=== PATIENT | male | born 1975 | race Caucasian/White ===

== ENCOUNTER 2017-04-01 18:28 | Emergency (ER) | payer BC ==
[2017-04-01] MEDS ORDERED: OXYCODONE-ACETAMINOPHEN 5-325 MG TABLET PO ONE (19:01)
--- NOTE | 2017-04-01 19:06 | ER Document Report ---
HPI - HPI Patient complains to provider of: r ankle injury Onset: This morning Onset/Duration: Sudden Quality of pain: Achy Pain Level: 3 Context: Patient states that he stepped off of his porch and accidentally stepped into a hole in his yard rolling his right ankle. Patient complains of continued right lateral ankle pain with swelling. Associated Symptoms: Other - Right ankle injury Exacerbated by: Standing, Movement, Walking Relieved by: Denies Similar symptoms previously: No Recently seen / treated by doctor: No - ROS ROS below otherwise negative: Yes Systems Reviewed and Negative: Yes All other systems reviewed and negative - NEURO Neurology: DENIES: Weakness - MUSCULOSKELETAL Musculoskeletal: REPORTS: Extremity pain, Swelling - DERM Skin Color: Ecchymosis Skin Problems: None Past Medical History - General Information source: Patient - Social History Smoking Status: Never Smoker Frequency of alcohol use: Occasional Drug Abuse: None Occupation: [employer] Lives with: Family Family History: Reviewed & Not Pertinent - Past Medical History Cardiac Medical History: Reports: Other - dextrocardia Musculoskeltal Medical History: Reports Other - chronic back pain Past Surgical History: Reports: Hx Appendectomy - Immunizations Hx Diphtheria, Pertussis, Tetanus Vaccination: Yes Vertical Provider Document - CONSTITUTIONAL Agree With Documented VS: Yes Exam Limitations: No Limitations General Appearance: WD/WN, No Apparent Distress - INFECTION CONTROL TRAVEL OUTSIDE OF THE [place] IN LAST 30 DAYS: No - HEENT HEENT: Atraumatic - NECK Neck: Normal Inspection - RESPIRATORY Respiratory: No Respiratory Distress - CARDIOVASCULAR Pulses: Normal: Dorsalis pedis - MUSCULOSKELETAL/EXTREMETIES Musculoskeletal/Extremeties: MAEW, Tender - Right ankle tenderness over lateral malleolar area with 2+ edema and ecchymosis, Edema, Eccymosis - NEURO Level of Consciousness: Awake, Alert, Appropriate Motor/Sensory: No Motor Deficit - DERM Integumentary: Warm, Dry Course - Diagnostic Test Radiology reviewed: Image reviewed, Reports reviewed Procedures - Immobilization Right Ankle Pre-Proc Neuro Vasc Exam: Normal Immobilizer type: Ankle stirrup Performed by: PCT Post-Proc Neuro Vasc Exam: Normal Alignment checked and good: Yes Discharge - Discharge Clinical Impression: Elevated blood pressure reading Right ankle sprain Qualifiers: Encounter type: initial encounter Involved ligament of ankle: unspecified ligament Qualified Code(s): S93.401A - Sprain of unspecified ligament of right ankle, initial encounter Condition: Stable Disposition: HOME, SELF-CARE Instructions: Ice & Elevation ([facility]), Sprained Ankle ([facility]), Use of Crutches ([facility] ), Ankle Stirrup Splint ([facility]) Additional Instructions: Return immediately for any new or worsening symptoms Followup with your primary care provider, call tomorrow to make a followup appointment Weightbearing as tolerated Follow-up with orthopedic doctor for any continued pain or problems Take your pain medications that you have at home as prescribed Your blood pressure was elevated, recheck with your primary doctor to have this reevaluated next week Forms: Elevated Blood Pressure, Return to Work Referrals: XENIA ANDERSON MD [Primary Care Provider] - Follow up as needed [facility] [Provider Group] - Follow up as needed
--- NOTE | 2017-04-01 19:46 | RADIOLOGY REPORT (SQ) ---
EXAM DESCRIPTION: ANKLE RIGHT COMPLETE COMPLETED DATE/TIME: 04/01/2017 7:17 pm REASON FOR STUDY: stepped into hole, r lat ankle pain COMPARISON: None. NUMBER OF VIEWS: Three views. TECHNIQUE: AP, lateral, and oblique radiographic images acquired of the right ankle. LIMITATIONS: None. FINDINGS: MINERALIZATION: Normal. BONES: No acute fracture or dislocation. No worrisome bone lesions. JOINTS: No effusions. SOFT TISSUES: Mild soft tissue swelling overlies the lateral malleolus. No foreign body. OTHER: No other significant finding. IMPRESSION: Mild soft tissue swelling laterally without underlying osseous injury. TECHNICAL DOCUMENTATION: JOB ID: [id number] [employer]- All Rights Reserved
[2017-04-01 20:31] VITALS: BP 139/87
== END 2017-04-01 20:26 | disposition home or self-care (01) ==
LOC: ER 18:28
DX: S99.911A Unspecified injury of right ankle, initial encounter (principal); R03.0 Elevated blood-pressure reading, without diagnosis of hypertension; W17.2XXA Fall into hole, initial encounter
CPT/HCPCS: 99283; 73610; L1902

== ENCOUNTER 2018-12-27 13:21 | Emergency (ER) | payer SELFPAY ==
[2018-12-27] MEDS ORDERED: AMOXICILLIN TR/POT CLAVULANATE 500-125 MG TAB PO ONE (14:35)
[2018-12-27] MEDS ORDERED: NAPROXEN 250 MG TABLET PO ONE (14:36)
--- NOTE | 2018-12-27 14:49 | ER Document Report ---
ED General - General Chief Complaint: Cat Bite Stated Complaint: CAT BITE/LEFT HAND Time Seen by Provider: 12/27/18 14:23 Primary Care Provider: XENIA ANDERSON MD [Primary Care Provider] - Follow up in 3-5 days Notes: Patient is a 43-year-old male that presents to the emergency department for chief complaint of Bite to the left hand. Patient states he was bit by his cat yesterday, and noticed redness and swelling shortly after and got worse today, the bite was on his left hand near the base of the thumb. This is his cats an indoor cat, and up-to-date with rabies vaccinations. The patient is right- handed. He denies any any fevers, chills, night sweats, chest pain or shortness of breath. No other systemic symptoms. He currently rates his pain as a 3 out of 10 describes it as an aching sensation worse with palpation over the hand. Past Medical History: Denies history of diabetes Past Surgical History: Appendectomy Social History: Admits to occasional alcohol use, denies tobacco or drug use. Family History: Reviewed and noncontributory for presenting illness Allergies: Reviewed, see documented allergy list. REVIEW OF SYSTEMS: Other than noted above, the 12 point review of systems was reviewed with the patient and were negative, all pertinent findings are included in the HPI. PHYSICAL EXAMINATION: Vital signs reviewed, nursing noted reviewed. GENERAL: Well-appearing, well-nourished and in no acute distress. HEAD: Atraumatic, normocephalic. EYES: Eyes appear normal, sclera anicteric, conjunctiva are normal. ENT: Moist mucous membranes. NECK: Normal range of motion, supple without lymphadenopathy LUNGS: Breath sounds clear to auscultation bilaterally and equal. No wheezes rales or rhonchi. HEART: Regular rate and rhythm without murmurs EXTREMITIES: On the dorsal aspect and radial aspect of the left hand, there are 2 puncture harrison, and surrounding erythema, with minimal lymphangitis extend proximally up the left wrist, tenderness with palpation over this area, no palpable fluctuance. Patient is able to extend and flex his fingers without much pain or difficulty. There is no erythema on the palmar aspect or over the flexor tendons of the fingers. The rest the patient's extremity exam is grossly unremarkable. There is no axillary lymphadenopathy. NEUROLOGICAL: No focal neurological deficits. Moves all extremities spontaneously Motor and sensory grossly intact on exam. PSYCH: Normal mood, normal affect. SKIN: Warm, Dry, normal turgor, no rashes or lesions noted on exposed skin TRAVEL OUTSIDE OF THE [place] IN LAST 30 DAYS: No - Related Data Allergies/Adverse Reactions: No Known Allergies Allergy (Verified 12/27/18 13:24) Past Medical History - Social History Smoking Status: Never Smoker Family History: Reviewed & Not Pertinent Patient has suicidal ideation: No Patient has homicidal ideation: No Renal/ Medical History: Denies: Hx Peritoneal Dialysis Past Surgical History: Reports: Hx Appendectomy - Immunizations Hx Diphtheria, Pertussis, Tetanus Vaccination: Yes Physical Exam - Vital signs Vitals: Temp Pulse Resp BP Pulse Ox 98.0 F 86 18 133/80 H 98 12/27/18 13:41 12/27/18 13:41 12/27/18 13:41 12/27/18 13:41 12/27/18 13:41 Course - Re-evaluation Re-evalutation: Patient seen and examined vital signs reviewed. Patient was evaluated and treated as appropriate for the patient's presenting symptoms and complaint, with consideration of any critical or life threatening conditions that may be associated with their obtained history and exam as noted above. Patient was treated with Augmentin Evaluation was most consistent with cellulitis secondary to her Right, x-rays are negative for retained objects. Patient placed on Augmentin for 10 days, advised to monitor closely, his cellulitis was marked with a marking pen, so that he can monitor to see if it is getting worse. Plan of care was discussed with the patient at this point, after careful consideration I feel that that patient can be discharged from the emergency department, the patient was educated treatments and reasons to return to the emergency department based on their presumed diagnosis as noted above, they were advised to followup with a primary care physician in 2-3 days. Patient was agreeable to plan of care. *Note is created using voice recognition software and may contain spelling, syntax or grammatical errors. Hand X-Ray 12/27/18 14:34 IMPRESSION: Diffuse soft tissue swelling. No radiopaque foreign body or soft tissue gas. No acute fracture. - Vital Signs Vital signs: Temp Pulse Resp BP Pulse Ox 97.8 F 98 16 137/96 H 100 12/27/18 16:38 12/27/18 16:38 12/27/18 16:38 12/27/18 16:38 12/27/18 16:38 Discharge - Discharge Clinical Impression: Cellulitis Qualifiers: Site of cellulitis: extremity Site of cellulitis of extremity: upper extremity Laterality: left Qualified Code(s): L03.114 - Cellulitis of left upper limb Cat bite Qualifiers: Encounter type: initial encounter Qualified Code(s): W55.01XA - Bitten by cat, initial encounter Condition: Stable Disposition: HOME, SELF-CARE Instructions: Cellulitis ([facility]) Additional Instructions: Please monitor for any worsening redness or pain, as you are taking the antibiotics. If you notice it is getting worse of the next 24-48 hours, please return to the emergency department. Prescriptions: Amox Tr/Potassium Clavulanate [Augmentin 875-125 Tablet] 1 tab PO BID 10 Days #20 tablet Referrals: XENIA ANDERSON MD [Primary Care Provider] - Follow up in 3-5 days
--- NOTE | 2018-12-27 15:09 | RADIOLOGY REPORT (SQ) ---
EXAM DESCRIPTION: HAND LEFT 3 VIEWS COMPLETED DATE/TIME: 12/27/2018 2:59 pm REASON FOR STUDY: cat bite to thumb COMPARISON: None. EXAM PARAMETERS: NUMBER OF VIEWS: Three views. TECHNIQUE: AP, lateral and oblique radiographic images acquired of the left hand. LIMITATIONS: None. FINDINGS: MINERALIZATION: Normal. BONES: No acute fracture or dislocation. No worrisome bone lesions. JOINTS: No effusions. SOFT TISSUES: Diffuse dorsal left hand soft tissue swelling. Diffuse thenar eminence soft tissue swe lling. No foreign body. OTHER: No other significant finding. IMPRESSION: Diffuse soft tissue swelling. No radiopaque foreign body or soft tissue gas. No acute fracture. TECHNICAL DOCUMENTATION: JOB ID: [id number]- All Rights Reserved Reading location - IP/workstation name: [email or web address]
[2018-12-27 16:38] VITALS: BP 137/96
== END 2018-12-27 16:38 | disposition home or self-care (01) ==
LOC: ER 13:21
DX: L03.114 Cellulitis of left upper limb (principal); S60.572A Other superficial bite of hand of left hand, initial encounter; M79.89 Other specified soft tissue disorders; W55.01XA Bitten by cat, initial encounter
CPT/HCPCS: 99283

== ENCOUNTER 2019-10-20 15:20 | Emergency (ER) | payer OTHER ==
--- NOTE | 2019-10-20 15:32 | ER Document Report ---
HPI - HPI Patient complains to provider of: Decreased hearing Time Seen by Provider: 10/20/19 15:27 Onset: This morning Onset/Duration: Gradual Quality of pain: Achy Pain Level: 1 Context: Patient presents complaining of decreased hearing to the right ear for the past month is been off and on that worsened today. Patient denies any fever or drainage from the ear. Associated Symptoms: denies: Earache, Fever Exacerbated by: Denies Relieved by: Denies Similar symptoms previously: No Recently seen / treated by doctor: No - ROS ROS below otherwise negative: Yes Systems Reviewed and Negative: Yes All other systems reviewed and negative - CONSTITUTIONAL Constitutional: DENIES: Fever - RESPIRATORY Respiratory: DENIES: Coughing - GASTROINTESTINAL Gastrointestinal: DENIES: Patient vomiting - DERM Skin Color: Normal Skin Problems: None Past Medical History - General Information source: Patient - Social History Smoking Status: Never Smoker Frequency of alcohol use: None Drug Abuse: None Occupation: None Family History: Reviewed & Not Pertinent Patient has suicidal ideation: No Patient has homicidal ideation: No Renal/ Medical History: Denies: Hx Peritoneal Dialysis Musculoskeletal Medical History: Reports Hx Arthritis Past Surgical History: Reports: Hx Appendectomy - Immunizations Hx Diphtheria, Pertussis, Tetanus Vaccination: Yes Vertical Provider Document - CONSTITUTIONAL Agree With Documented VS: Yes Exam Limitations: No Limitations General Appearance: WD/WN, No Apparent Distress - INFECTION CONTROL TRAVEL OUTSIDE OF THE [place] IN LAST 30 DAYS: No - HEENT HEENT: Atraumatic, Normocephalic Notes: Cerumen impaction bilaterally, right worse than left - NECK Neck: Normal Inspection, Supple - RESPIRATORY Respiratory: Breath Sounds Normal, No Respiratory Distress - CARDIOVASCULAR Cardiovascular: Regular Rate, Regular Rhythm - MUSCULOSKELETAL/EXTREMETIES Musculoskeletal/Extremeties: MAEW - NEURO Level of Consciousness: Awake, Alert, Appropriate Motor/Sensory: No Motor Deficit - DERM Integumentary: Warm, Dry, No Rash Course - Re-evaluation Re-evalutation: 10/20/19 Excess cerumen was removed with irrigation. Patient's TMs normal bilaterally, no swelling of external auditory canal. Patient reports hearing has improved. - Vital Signs Vital signs: Temp Pulse Resp BP Pulse Ox 97.8 F 106 H 20 145/89 H 99 10/20/19 15:25 10/20/19 15:25 10/20/19 15:25 10/20/19 15:25 10/20/19 15:25 Discharge - Discharge Clinical Impression: Impacted cerumen of both ears Condition: Stable Disposition: HOME, SELF-CARE Instructions: Cerumen Impaction ([facility]) Additional Instructions: Return immediately for any new or worsening symptoms Followup with your primary care provider, call tomorrow to make a followup appointment May use [id number] ear wax, cerumen, removal kits as directed Referrals: XENIA ANDERSON MD [ACTIVE STAFF] - Follow up as needed
[2019-10-20 17:08] VITALS: BP 137/110
== END 2019-10-20 17:08 | disposition home or self-care (01) ==
LOC: ER 15:20
DX: H61.23 Impacted cerumen, bilateral (principal)
CPT/HCPCS: 99283